=== PATIENT | male | born 1970 | race Caucasian/White ===

== ENCOUNTER 2024-09-25 08:52 | Outpatient (REF) | payer MEDICAID, SELFPAY | END 2024-09-25 08:53 | disposition home or self-care (01) | LOC: HO.HOSX 08:52 | PROVIDERS: Visit Provider Physician Assistant | DX: Z13.89 Encounter for screening for other disorder (principal) ==

== ENCOUNTER 2024-11-05 08:17 | Outpatient (REF) | payer MEDICAID, SELFPAY | END 2024-11-05 08:18 | disposition home or self-care (01) | LOC: HO.HOSX 08:17 | PROVIDERS: Visit Provider Physician Assistant | DX: Z13.89 Encounter for screening for other disorder (principal) ==

== ENCOUNTER 2025-05-20 13:22 | Outpatient (AMB) | payer MEDICAID, SELFPAY ==
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
== END 2025-05-20 14:05 | disposition home or self-care (01) ==
LOC: HO.HGS 13:22
PROVIDERS: PCP Internal Medicine; Visit Provider Surgery
DX: L72.0 Epidermal cyst (principal)
CPT/HCPCS: 99203

== ENCOUNTER → 2025-05-20 13:22 | Outpatient (BNVA) | payer MEDICAID, SELFPAY | PROVIDERS: PCP Internal Medicine; Visit Provider Surgery | DX: L72.0 Epidermal cyst (principal) | CPT/HCPCS: 99202 ==

== ENCOUNTER 2025-06-26 08:53 | Outpatient (AMB) | payer MEDICAID, SELFPAY ==
--- NOTE | 2025-06-26 09:09 | MHC.OFFVIS ---
Vital Signs 06/26/25 09:20 Height 5 ft 9 in Weight 159 lb BMI 23.5 Handedness Right Intake Visit Reasons: New Pt - B/L Shoulder pain Intake Note: Noel is a 54 year old hand dominant male who presents today as a new patient for a evaluation of his bilateral shoulder pain. Patient reports he has an injury in the left shoulder that happened June and July of last year. He states that his pain is on the right shoulder is the worst than the left. Hx of injections in the right shoulder with relief. Allergies Food allergy Allergy (Severe, Uncoded 05/20/25 13:53) Unknown HPI HPI New Pt - B/L Shoulder pain: Details: Mr. Bernal is a 54 year old hand dominant male who presents today as a new patient for a evaluation of his bilateral shoulder pain. The patient reports that his right shoulder has been in pain for the past four years after sustaining a fall while carrying a heavy box in the kitchen. He reports that he slipped and fell hitting his right elbow and shoulder. He reports that at that time his shoulder dislocated and he reduced it on his own. He has had limited ROM and pain ever since. Patient reports he has an injury to the left shoulder that happened June and July of last year when he was carrying a heavy box and fell as well. He states that his pain is on the right shoulder is the worst than the left. Hx of injections in the right shoulder with mild relief as well as physical therapy with mild relief and no improvement in ROM. [facility] Medical History Epidermal cyst Depression GERD (gastroesophageal reflux disease) Hypertension Surgical History History of esophagogastroduodenoscopy (EGD) (~08/22/21) H/O colonoscopy (~08/22/21) History of arthroscopy of knee Family History Father HTN (hypertension) Alcoholism Mental illness in member of household Mother Alcoholism HTN (hypertension) Mental illness in member of household Diabetes mellitus Other Lung cancer Social History (Updated 06/26/25 @ 09:19 by Raoul Beauchamp) Alcohol intake: former Patient Tobacco Use Status: Former Tobacco user Cigarettes Per Day: 3 Current occupational status: unemployed Current occupation: right hand dominant Review of Systems Const All systems reviewed & are unremarkable except as noted in HPI and below Physical Exam Vital Signs: BMI result Body Mass Index 23.5 Const General: cooperative, healthy appearing and no acute distress Resp Effort & Inspection: normal respiratory effort and able to speak in complete sentences Extrem Other: Right shoulder 90 degrees of FF and ABD. Able to reach back pocket. 3/5 stength with empty can. + Cross body reach. NVI. Psych Appearance: grossly normal Mental Status: mental status grossly normal Attitude: cooperative Assessment & Plan Assessment & Plan (1) Rotator cuff arthropathy of right shoulder: Code(s): M12.811 - Other specific arthropathies, not elsewhere classified, right shoulder Category: Medical Plan Mr. Bernal is a 54 year old hand dominant male who presents today as a new patient for a evaluation of his bilateral shoulder pain. The patient reports that his right shoulder has been in pain for the past four years after sustaining a fall while carrying a heavy box in the kitchen. He reports that he slipped and fell hitting his right elbow and shoulder. He reports that at that time his shoulder dislocated and he reduced it on his own. He has had limited ROM and pain ever since. Patient reports he has an injury to the left shoulder that happened June and July of last year when he was carrying a heavy box and fell as well. He states that his pain is on the right shoulder is the worst than the left. Hx of injections in the right shoulder with mild relief as well as physical therapy with mild relief and no improvement in ROM. While in the office today, I discussed obtaining an MRI to further evaluate the integrity of the right shoulder and surrounding structures for the possibility of surgical planning as the patient has tried and failed cortisone injections and physical therapy. He will followup after the MRI is obtained, sooner if needed. X-rays of bilateral shoulders were obtained while in the office today, and reviewed by me, Maeve Stephen PA-C, which were significant for right shoulder slight superior migration of the humeral head with AC joint arthritis and left shoulder AC joint arthritis. Orders: Orders XR shoulder LT min 2V Today M25.519 - Pain in unspecified shoulder XR shoulder RT min 2V Today M25.519 - Pain in unspecified shoulder Coding Level of Care Code New Pt Level 4 (04020) Diagnoses Rotator cuff arthropathy of right shoulder M12.811
--- OUTSIDE RECORDS SUMMARY | 2025-06-26 09:16 | XMS_ITS | Clinical Summary ---
Author Organization [facility] Address [address] [place] [address] Phone Care Team Providers Care Client Account Representative Name Role Phone Physician, Pcp Unknown Primary Care Provider Riya vailable Allergies No known active allergies Medications No known medications Encounters Date Type Department Care Team Description 04/11/2025 12:22 PM EDT - 04/11/2025 2:01 PM EDT Emergency [facility] Emergency [address] [place] [address] Gualberto Barragan MD Prescription refill (Primary Dx); Substance use disorder Discharge Disposition: Home or Self Care from Last 3 Months Medical History Medical History Date Comments Hypertension Social History Tobacco Use Types Packs/Day Years Used Date Smoking Tobacco: Every Day Cigarettes Smokeless Tobacco: Never Tobacco Cessation:Ready to Q uit: Not Asked; Counseling Given: Not Answered Sex and Gender Information Value Date Recorded Sex Assigned at Not on file Legal Sex Male 11:24 AM EDT Gender Identity Not on file Sexual Orientation Not on file Obstetrics History Last Filed Vital Signs Vital Sign Reading Time Taken Comments Blood Pressure 116/76 04/11/2025 11:46 AM EDT Pulse 89 04/11/2025 11:46 AM EDT Temperature 36.9 C (98.5 F) 04/11/2025 11:46 AM EDT Respiratory Rate 18 04/11/2025 11:46 AM EDT Oxygen Saturation 100% 04/11/2025 11:46 AM EDT Inhaled Oxygen Concentration - - Weight 64.9 kg (143 lb) 04/11/2025 11:46 AM EDT Height 175.3 cm (5' 9 ) 04/11/2025 11:46 AM EDT Body Mass Index 21.12 04/11/2025 11:46 AM EDT Plan of Treatment Health Maintenance Due Date Last Done Comments Colorectal Cancer Screening: Colonoscopy 1972 DTaP,Tdap,and Td Vaccines (1 - Tdap) 1991 Hepatitis B Vaccines (1 of 3 - 19+ 3-dose series) 1991 Pneumococcal Vaccine: 50+ Ye ars (1 of 2 - PCV) 1991 Zoster Vaccines (1 of 2) 2022 Depression Screening 08/13/2024 Cholesterol Screening (Lipid Panel) 04/11/2025 HIV Screening 04/11/2025 Hepatitis C Screening 04/11/2025 Social Influencers of Health Screening 04/11/2025 COVID-19 Vaccine (1 - 2024-2 6 season) 2025 Influenza Vaccine (#1) 2025 RSV Immunization Adult Patie nts (1 - 1-dose 75+ series) 2047 HIB Vaccines Aged Out No longer eligi ble based on patient's age to complete this topic HPV Vaccines Aged Out No longer eligi ble based on patient's age to complete this topic Hepatitis A Vaccines Aged Out No long er eligible based on patient's age to complete this topic IPV Vaccines Aged Out No longer eligi ble based on patient's age to complete this topic MMR Vaccines Aged Out No longer eligi ble based on patient's age to complete this topic Meningococcal ACWY Vaccine Aged Out N o longer eligible based on patient's age to complete this topic Meningococcal B Vaccine Aged Out No l onger eligible based on patient's age to complete this topic RSV Immunization Patients Un angela 20 months Aged Out No longer eligible b ased on patient's age to complete this topic Varicella Vaccines Aged Out No longer eligible based on patient's age to complete this topic Insurance [place]ICA[place] - [place] Care Teams Client Account Representative Relationship Specialty Start Date End Date Physician, Pcp Unknown PCP - General 04/11/25
[2025-06-26 09:20] VITALS: BMI 23.5
== END 2025-06-26 10:07 | disposition home or self-care (01) ==
LOC: HO.HOS 08:53
PROVIDERS: PCP Internal Medicine; Visit Provider Physician Assistant
DX: M12.811 Other specific arthropathies, not elsewhere classified, right shoulder (principal); M25.511 Pain in right shoulder; M25.512 Pain in left shoulder
CPT/HCPCS: 99204

== ENCOUNTER 2025-06-26 09:36 | Outpatient (REF) | payer MEDICAID, SELFPAY ==
--- NOTE | ~2025-06-26 | XR_ITS ---
EXAMINATION: XR SHOULDER, RIGHT CLINICAL INFORMATION: M25.519 - Pain in unspecified shoulder COMPARISON: None available. TECHNIQUE: Three views of the right shoulder. FINDINGS: Mild acromioclavicular arthritis. No acute fracture, dislocation or suspicious bony lesion. Glenohumeral joint arthritis. No abnormal soft tissue calcification. XR/XR shoulder RT min 2V IMPRESSION: Mild glenohumeral and acromioclavicular arthritis. Electronically signed by: Jeff Silva MD 06/26/2025 11:25 AM JOSIANE SILVERMAN
--- NOTE | ~2025-06-26 | XR_ITS ---
EXAMINATION: XR SHOULDER, LEFT CLINICAL INFORMATION: M25.519 - Pain in unspecified shoulder COMPARISON: None available. TECHNIQUE: Three views of the left shoulder. FINDINGS: Mild acromioclavicular arthritis. Glenohumeral joint space is maintained. No acute fracture or dislocation. No abnormal soft tissue calcification. XR/XR shoulder LT min 2V IMPRESSION: Mild acromioclavicular arthritis Electronically signed by: Jeff Silva MD 06/26/2025 02:56 PM EST
== END 2025-06-26 09:37 | disposition home or self-care (01) ==
LOC: HO.HOSX 09:36
PROVIDERS: Visit Provider Physician Assistant
DX: M25.511 Pain in right shoulder (principal); M25.512 Pain in left shoulder; M12.811 Other specific arthropathies, not elsewhere classified, right shoulder
CPT/HCPCS: 73030; 99212

== ENCOUNTER → 2025-06-26 09:38 | Outpatient (BNV) | payer MEDICAID, SELFPAY | PROVIDERS: Visit Provider Radiology Diagnostic Ultrasound | DX: M25.512 Pain in left shoulder (principal); M25.511 Pain in right shoulder | CPT/HCPCS: 73030 ==

== ENCOUNTER 2025-07-25 11:01 | Outpatient (REF) | payer MEDICAID, SELFPAY ==
--- NOTE | ~2025-07-25 | MR_ITS ---
EXAMINATION: MR SHOULDER WITHOUT CONTRAST, RIGHT CLINICAL INFORMATION: Other specified arthropathy COMPARISON: X-ray 06/26/2025 TECHNIQUE: MRI of the shoulder without contrast was performed on a high-field scanner. FINDINGS: ROTATOR CUFF: There is full-thickness, complete tears of the supraspinatus and infraspinatus tendons, with tendon retraction to the level of the glenoid. Teres minor is intact. Moderate subscapularis tendinosis, mild articular surface fraying. Mild decrease in the infraspinatus muscle bulk.. Edema in the teres minor and infraspinatus muscle. BICEPS: Mild intra-articular long head biceps tendinosis. CORACOACROMIAL ARCH: The undersurface of the acromion is curved with no subacromial spur. Mild-moderate acromioclavicular arthritis. There is fluid in the subacromial subdeltoid space. LABRUM/CAPSULE: T2 signal at the base of the anteroinferior labrum, suspicious for a tear. Superior labrum degeneration plus/minus tear. Intact inferior capsule GLENOHUMERAL JOINT/MARROW: Mild glenohumeral arthritis. Degenerative cysts in the posterior greater tuberosity. No evidence of acute fracture. No aggressive marrow replacing lesion. Moderate effusion, mild synovitis/debris. MR/MR shoulder RT wo con IMPRESSION: * Full-thickness, complete tears of the supraspinatus and infraspinatus tendons. * Moderate subscapularis tendinosis, articular surface fraying * Edema in the infraspinatus and teres minor muscles. * Mild intra-articular long head biceps tendinosis. *Findings suspicious for anteroinferior labral tear. Superior degeneration plus/minus tear. *Mild glenohumeral arthritis. Moderate effusion with mild synovitis/debris *Mild-moderate acromioclavicular arthritis. Electronically signed by: Jeff Silva MD 07/27/2025 07:33 AM EST
--- OUTSIDE RECORDS SUMMARY | 2025-07-25 11:05 | XMS_ITS | Clinical Summary ---
Author Organization [facility] Address [address] [place] [address] Phone Care Team Providers Care Bilingual Recruiter Name Role Phone Physician, Pcp Unknown Primary Care Provider Riya vailable Allergies No known active allergies Medications No known medications Encounters Date Type Department Care Team Description 07/14/2025 1:26 PM EST - 07/14/2025 2:48 PM EST Emergency [facility] Emergency [address] [place] [address] Jed Nick MD No problem, feared complaint unfounded (Primary Dx) Discharge Disposition: Home or Self Care from [...] on file Sexual Orientation Not on file Last Filed Vital Signs Vital Sign Reading Time Taken Comments Blood Pressure 129/74 07/14/2025 1:15 PM EST Pulse 90 07/14/2025 1:15 PM EST Temperature 36.7 C (98 F) 07/14/2025 1:15 PM EST Respiratory Rate 16 07/14/2025 1:15 PM EST Oxygen Saturation 98% 07/14/2025 1:15 PM EST Inhaled Oxygen Concentration - - Weight 73.9 kg (163 lb) 07/14/2025 1:15 PM EST Height 175.3 cm (5' 9 ) 07/14/2025 1:15 PM EST Body Mass Index 24.07 07/14/2025 1:15 PM EST Plan of Treatment Health Maintenance Due Date [...] on patient's age to complete this topic Procedures Procedure Name Priority Date/Time Associated Diagnosis Comments CBC WITH AUTO DIFFERENTIAL STAT 07/14/2025 1:26 PM EST CREATINE KINASE STAT 07/14/2025 1:26 PM EST LACTATE DEHYDROGENASE STAT 07/14/2025 1:26 PM EST COMPREHENSIVE METABOLIC PANEL STAT 07/14/2025 1:26 PM EST CBC AND DIFFERENTIAL STAT 07/14/2025 1:26 PM EST from Last 3 Months Results * (ABNORMAL) CBC auto differential (07/14/2025 1:26 PM EST) [facility] Signature WBC 13.0(H) 4.8 - 10.8 K/mcL LAB HEMETOLOGY METHOD 07/14/2025 1:[address] [facility] RBC 4.70 4.50 - 5.50 M/mcL LAB HEMETOLOGY METHOD 07/14/2025 1:[address] [facility] Hemoglobin 13.6 13.5 - 17.5 g/dL LAB HEMETOLOGY METHOD 07/14/2025 1:[address] [facility] Hematocrit 42.0 42.0 - 54.0 % LAB HEMETOLOGY METHOD 07/14/2025 1:[address] [facility] MCV 89.9 79.0 - 98.0 FL LAB HEMETOLOGY METHOD 07/14/2025 1:[address] [facility] MCH 29.1 27.0 - 32.0 pcg LAB HEMETOLOGY METHOD 07/14/2025 1:[address] [facility] MCHC 32.4 32.0 - 37.0 g/dL LAB HEMETOLOGY METHOD 07/14/2025 1:[address] [facility] RDW 12.6 11.0 - 15.0 % LAB HEMETOLOGY METHOD 07/14/2025 1:[address] [facility] Platelets 392 130 - 400 K/mcL LAB HEMETOLOGY METHOD 07/14/2025 1:[address] [facility] MPV 10.3 7.0 - 11.0 FL LAB HEMETOLOGY METHOD 07/14/2025 1:[address] [facility] NRBC 0.0 <1.0 % LAB HEMETOLOGY METHOD 07/14/2025 1:[address] [facility] NRBC Absolute 0.00 <0.10 K/mcL LAB HEMETOLOGY METHOD 07/14/2025 1:[address] [facility] Neutrophils Relative 58.0 % LAB HEMETOLOGY METHOD 07/14/2025 1:[address] [facility] Lymphocytes Relative 19.5 % LAB HEMETOLOGY METHOD 07/14/2025 1:[address] [facility] Monocytes Relative 5.9 % LAB HEMETOLOGY METHOD 07/14/2025 1:[address] [facility] Eosinophils Relative 15.0 % LAB HEMETOLOGY METHOD 07/14/2025 1:[address] [facility] Basophils Relative 1.2 % LAB HEMETOLOGY METHOD 07/14/2025 1:[address] [facility] Immature Granulocytes Relative 0.4 % LAB HEMETOLOGY METHOD 07/14/2025 1:[address] [facility] Neutrophils Absolute 7.53(H) 1.50 - 7.00 K/mcL LAB HEMETOLOGY METHOD 07/14/2025 1:[address] [facility] Lymphocytes Absolute 2.53 1.00 - 5.00 K/mcL LAB HEMETOLOGY METHOD 07/14/2025 1:[address] [facility] Monocytes Absolute 0.77 0.20 - 1.00 K/mcL LAB HEMETOLOGY METHOD 07/14/2025 1:[address] [facility] Eosinophils Absolute 1.95(H) 0.00 - 0.50 K/mcL LAB HEMETOLOGY METHOD 07/14/2025 1:[address] [facility] Basophils Absolute 0.16 0.00 - 0.20 K/mcL LAB HEMETOLOGY METHOD 07/14/2025 1:[address] [facility] Immature Granulocytes Absolute 0.05(H) 0.00 - 0.03 K/mcL LAB HEMETOLOGY METHOD 07/14/2025 1:[address] [facility] Blood Venous blood specimen / Unknown Venipuncture / Unknown 07/14/2025 1:26 PM EST 07/14/2025 1:45 PM EST us Jed Nick MD LAB BLOOD ORDERABLES Final Resul t Performing Organization Address City/[facility]/ZIP Co de Phone Number [facility] [address] [place] [address], [place] [phone] * LDH, Lactate dehydrogenase (07/14/2025 1:26 PM EST) LDH 244 120 - 246 unit/L 07/14/2025 2:[address] [facility] Blood Venous blood specimen / Unknown Venipuncture / Unknown 07/14/2025 1:26 PM EST 07/14/2025 1:45 PM EST us Jed Nick MD LAB BLOOD ORDERABLES Final Resul t Performing Organization Address [facility]/ZIP Co de Phone Number [facility] [address] [place] [address], [place] [phone] * Cardiac Enzymes - CPK (07/14/2025 1:26 PM EST) Total CK 90 46 - 171 unit/L 07/14/2025 2:[address] [facility] Blood Venous blood specimen / Unknown Venipuncture / Unknown 07/14/2025 1:26 PM EST 07/14/2025 1:45 PM EST us Jed Nick MD LAB BLOOD ORDERABLES Final Resul t Performing Organization Address City/[facility]/ZIP Co de Phone Number [facility] [address] [place] [address], [place] [phone] * (ABNORMAL) Comprehensive metabolic panel (07/14/2025 1:26 PM EST) Sodium 141 133 - 145 mmol/L 07/14/2025 2:[address] [facility] Potassium 4.7 3.5 - 5.5 mmol/L 07/14/2025 2:[address] [facility] Chloride 102 96 - 110 mmol/L 07/14/2025 2:[address] [facility] CO2 32 21 - 32 mmol/L 07/14/2025 2:[address] [facility] Anion Gap 7 3 - 11 07/14/2025 2:[address] [facility] Glucose 111(H) 70 - 100 mg/dL 07/14/2025 2:[address] [facility] BUN 16 5 - 25 mg/dL 07/14/2025 2:[address] [facility] Creatinine 1.16 0.70 - 1.30 mg/dL 07/14/2025 2:[address] [facility] eGFR 75 >=60 mL/min/1. 73m2 07/14/2025 2:[address] [facility] Comment:Calculation based on the Chronic Kidney Disease Epidemiology Collaboration (CKD-EPI) equation refit without adjustment for race. BUN/Creatinine Ratio 13.8 07/14/2025 2:[address] [facility] Calcium 9.6 8.5 - 10.5 mg/dL 07/14/2025 2:[address] [facility] AST (SGOT) 24 10 - 42 unit/L 07/14/2025 2:[address] [facility] ALT (SGPT) 17 10 - 60 unit/L 07/14/2025 2:[address] [facility] Alkaline Phosphatase 96 42 - 121 unit/L 07/14/2025 2:[address] [facility] Total Protein 6.9 6.0 - 8.0 g/dL 07/14/2025 2:[address] [facility] Albumin 4.5 3.2 - 5.0 g/dL 07/14/2025 2:[address] [facility] Total Bilirubin 0.3 0.0 - 1.4 mg/dL 07/14/2025 2:[address] [facility] Blood Venous blood specimen / Unknown Venipuncture / Unknown 07/14/2025 1:26 PM EST 07/14/2025 1:45 PM EST us Jed Nick MD LAB BLOOD ORDERABLES Final Resul t [facility] [address] [place] [address], [place] [phone] from Last 3 Months Insurance MEDICAID - [place] Care Teams Bilingual Recruiter Relationship Specialty Start Date End Date Physician, Pcp Unknown PCP - General 04/11/25
== END 2025-07-25 11:02 | disposition home or self-care (01) ==
LOC: HO.MRI 11:01
PROVIDERS: PCP Internal Medicine; Visit Provider Physician Assistant
DX: M12.811 Other specific arthropathies, not elsewhere classified, right shoulder (principal)
CPT/HCPCS: 73221

== ENCOUNTER → 2025-07-25 11:15 | Outpatient (BNV) | payer MEDICAID, SELFPAY | PROVIDERS: PCP Internal Medicine; Visit Provider Radiology Diagnostic Ultrasound | DX: M75.121 Complete rotator cuff tear or rupture of right shoulder, not specified as traumatic (principal); M75.31 Calcific tendinitis of right shoulder; M19.011 Primary osteoarthritis, right shoulder; M25.411 Effusion, right shoulder; R60.0 Localized edema | CPT/HCPCS: 73221 ==